=== PATIENT | male | born 1970 | race Two or more races ===

== ENCOUNTER 2025-03-29 08:36 | Emergency (ER) | payer MEDICAID ==
[~2025-03-29] VITALS: Ht 160 cm; Wt 83.9 kg
[2025-03-29] MEDS: CEPHALEXIN MONOHYDRATE 500 MG CAPSULE PO ONE (09:22)
[2025-03-29] MEDS: TDAP [DIPH/PERTUSSIS/TET] 0.5 ML VIAL IM ONE (09:22)
[2025-03-29] MEDS: IBUPROFEN 600 MG TABLET PO ONE (09:23)
[2025-03-29] MEDS ORDERED: CEPH-570 PO (09:53)
[2025-03-29] MEDS ORDERED: CIPR-262 PO (09:54)
[2025-03-29 10:08] VITALS: BP 135/76; TEMP 98.5; O2SAT 95
== END 2025-03-29 10:08 | disposition home or self-care (01) ==
LOC: ER 08:42
DX: S71.132A Puncture wound without foreign body, left thigh, initial encounter (principal); X58.XXXA Exposure to other specified factors, initial encounter; Y93.89 Activity, other specified; Y92.89 Other specified places as the place of occurrence of the external cause; Y99.8 Other external cause status
CPT/HCPCS: 99283; 90471; 90715; 73552; A6403